=== PATIENT | female | born 1950 | race Caucasian/White ===

== ENCOUNTER → 2016-08-24 | Outpatient (CLI) | payer OTHER ==
[2016-08-24 13:14] LABS: BASO % 0.5 %; BASO ABS # 0.04 K/uL (0-0.2); COMPLETE YES; EOS % 0.8 %; HEMATOCRIT 43.4 % (37-47); IG% 0.5 %; LYMPH % 20.1 %; LYMPH ABS # 1.78 K/uL (1.2-3.4); MEAN CELL VOLUME 81.9 fL (80-100); MEAN CORPUSCULAR HEMOGLOBIN 28.9 pg (25-34); MEAN CORPUSCULAR HGB CONC 35.3 g/dl (32-36); MEAN PLATELET VOLUME 11.6 fL (7.4-10.4); NEUT % 70.1 %; PLATELET COUNT 194 K/uL (130-400); WHITE BLOOD COUNT 8.84 K/uL (4.8-10.8)
[2016-08-24 13:40] LABS: ALT/SGPT 63 U/L (12-78); BLOOD UREA NITROGEN 9 mg/dl (7-18); BUN/CREATININE RATIO 10.6 (10-20); CALCIUM 9.3 mg/dl (8.5-10.1); CARBON DIOXIDE 27 mmol/L (21-32); CHLORIDE 104 mmol/L (98-107); CREATININE 0.83 mg/dl (0.60-1.20); GLUCOSE 144 mg/dl (70-99); POTASSIUM 3.8 mmol/L (3.5-5.1); SODIUM 140 mmol/L (136-145)
[2016-08-24 13:43] LABS: ALB/GLOB RATIO 0.9 (0.9-2); ALKALINE PHOSPHATASE 97 U/L (45-117); AST/SGOT 34 U/L (15-37)
[2016-08-24 14:12] LABS: ESTIMATED AVERAGE GLUCOSE 169 mg/dl; HA1C FLAG Normal (Normal)
--- NOTE | 2016-09-28 08:08 | CODING QUERY MEDICAL NECESSITY ---
SUPPORTING DIAGNOSIS NEEDED Dr. Zamudio, A supporting diagnosis is required for the test/procedure performed on this patient in order for us to be reimbursed by the patient's insurance. Please provide a supporting diagnosis for the following test/procedure listed below next to the test name along with your signature. *If there is no additional diagnosis for this patient that would support the following test/procedure please document that below next to the test/procedure. Test(s)/Procedure(s) that require a supporting diagnosis: * ([id number]) B12 VITAMIN LEVEL DIAGNOSIS: DATE OF SERVICE: 08/24/16 Provider Signature: Date: Thank you Ernesto Ríos [facility] Once completed, please kindly fax back to [phone] For questions please call [phone]
== END | disposition home or self-care (01) ==
LOC: C.LABMFLN 08:48
PROVIDERS: ATTEND Family Medicine
DX: E11.9 Type 2 diabetes mellitus without complications (principal)

== ENCOUNTER → 2016-08-27 | Outpatient (CLI) | payer OTHER | END | disposition home or self-care (01) | LOC: C.LABMFLN 07:38 | PROVIDERS: ATTEND Family Medicine | DX: E11.9 Type 2 diabetes mellitus without complications (principal) ==

== ENCOUNTER → 2017-01-06 | Outpatient (CLI) | payer OTHER ==
[2017-01-07 07:28] LABS: ESTIMATED AVERAGE GLUCOSE 123 mg/dl; HA1C FLAG Normal (Normal)
== END | disposition home or self-care (01) ==
LOC: C.LABMFLN 13:59
PROVIDERS: ATTEND Family Medicine
DX: E55.9 Vitamin D deficiency, unspecified (principal); E11.9 Type 2 diabetes mellitus without complications

== ENCOUNTER → 2017-02-10 | Outpatient (CLI) | payer OTHER | END | disposition home or self-care (01) | LOC: C.LABMFLN 10:03 | PROVIDERS: ATTEND Family Medicine | DX: R35.0 Frequency of micturition (principal) ==

== ENCOUNTER → 2017-04-19 | Outpatient (CLI) | payer OTHER ==
[2017-04-19 13:24] LABS: ALT/SGPT 59 U/L (12-78); BLOOD UREA NITROGEN 10 mg/dl (7-18); BUN/CREATININE RATIO 10.3 (10-20); CALCIUM 8.9 mg/dl (8.5-10.1); CARBON DIOXIDE 27 mmol/L (21-32); CHLORIDE 105 mmol/L (98-107); CREATININE 0.95 mg/dl (0.60-1.20); GLUCOSE 156 mg/dl (70-99); POTASSIUM 3.9 mmol/L (3.5-5.1); SODIUM 139 mmol/L (136-145)
[2017-04-19 13:27] LABS: ALB/GLOB RATIO 0.8 (0.9-2); ALKALINE PHOSPHATASE 90 U/L (45-117); AST/SGOT 37 U/L (15-37)
[2017-04-19 13:57] LABS: ESTIMATED AVERAGE GLUCOSE 146 mg/dl; HA1C FLAG Normal (Normal)
== END | disposition home or self-care (01) ==
LOC: C.LABMFLN 10:08
PROVIDERS: ATTEND Family Medicine
DX: E11.9 Type 2 diabetes mellitus without complications (principal)

== ENCOUNTER 2022-05-19 11:35 | Inpatient (IN) ==
--- NOTE | 2022-05-19 11:41 | Emergency Department Note ---
Impression & Plan Seizure, S/P craniotomy, UTI (urinary tract infection), Unable to care for self ED Provider Note NAME: CAM CHISHOLM AGE: 71 SEX: F : 1950 ARRIVES VIA: Ambulance INFORMANT: Patient, ED PROVIDER(S): Wilian Sy MD Chief Complaint: Seizure-like episodes HPI: History may be limited given the patient's prior history of aphasia. The patient does appear to answer yes or no questions and currently denies any chest pain shortness of breath nausea vomiting or abdominal pain. Report from nursing via EMS was that the patient had (2) 20-second episodes where the patient had some clenched teeth and verbal outburst. Unsure as whether the patient take took her medications this morning. No reported falls or trauma. BSG was greater than 200. These episodes were witnessed by family that were not present at the bedside at the time of the patient's initial history and physical exam. I did review the patient's most recent primary care visit from April 22. The patient recently has suffered from a complicated UTI. Patient had been on Cipro 500 twice daily for 5 days. A urine specimen was obtained at that time. 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 The patient does have residual aphasia and right-sided weakness and has a history of focal epilepsy. 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 Patient does wear a hard helmet. Per review the patient's medication list she does take Lamictal but no other antiepileptic medications. I did review the patient's outpatient neurology note from [facility] who states the patient had been well controlled on Lamictal 100 mg twice daily the patient's Lamictal was increased to 300 mg Lamictal XR. I did speak with patient's daughter at bedside he stated that the patient's was recently admitted due to concern for intracranial bleeding from stage 4 melanoma mets. Patient is currently in hospital and he is the primary caregiver of the patient in the nighttime. She states that she lives several hours away and is unable to come up as frequently. She did notice the seizure- like episodes today. She states that nursing has not been in the home as frequently as they have been calling off around holiday and the patient has not been getting her medications as they are prescribed as she does need help with medication administration. MDM: Patient presented due to concern for 2 separate 22nd episodes that may have been related to seizure. Blood work is obtained along with an EKG chest x-ray patient was ordered IV fluids. CT of the head also obtained. The patient is already anticoagulated on apixaban due to prior history of DVT. EKG with no signs of obvious arrhythmia. The patient count showed normal white count H&H and platelet count with normal kidney function. BSG 170 not DKA. Urinalysis not show evidence of obvious infection. COVID-negative. CT head does not show any acute changes. The patient was ordered a dose of Rocephin as a precaution and urine culture was obtained as she is currently on Macrobid. I did speak with the admitting service Dr. Morel and the patient was admitted to the medicine service. ROS: See HPI for pertinent positives and negatives. A total of 10 systems were reviewed and otherwise negative. this may be limited given the patient's prior history of aphasia Past medical history: See below Surgical history: See below Social history: See below Physical Exam: GENERAL: NAD, wearing a mask, non-toxic. Wearing glasses. Head: Prior left-sided craniectomy noted. Well-healed incisional scars. EYE EXAM: Normal conjunctiva. PERRL, no anisocoria and EOM's grossly intact w/o pain. NECK: Supple, no nuchal rigidity, no adenopathy, non-tender. No signs of meningismus. FROM of the neck with good chin to chest and neck extension. No stridor. LUNGS: Clear to auscultation. Normal chest wall mechanics. HEART: NSR, no MRG. ABDOMEN: Abdomen soft, non-tender, normo-active bowel sounds, no masses, no rebound or guarding. BACK: No CVA TTP. SKIN: No rashes and no bruising. UPPER EXTREMITIES: Upper extremities are grossly normal. LOWER EXTREMITIES: Grossly normal, no edema. NEURO EXAM: Awake and alert, follows basic commands,expressive aphasia, right upper extremity weakness, able to move bilateral toes, left upper extremity with good manager operations and procurement strength Differential diagnoses: Epilepsy, infection, hypoglycemia, electrolyte abnormalities, cardiac sources, intracerebral event, trauma, toxicologic, neurologic, syncope, as well as other pathologies. Course: Patient was seen and evaluated the bedside. Full history physical exam was performed. EKG interpreted by me Normal sinus rhythm, rate of 83 normal intervals normal axis no ST elevations. Imaging Studies: See Below Cardiac monitoring: An order was placed for continuous cardiac monitoring. The monitor shows a rate of 82 with sinus rhythm. Past Med/Surg History Medical History Antibiotic-resistant bacterial infection Brain abscess 09/2020, [place] [facility] [place]plicated UTI (urinary tract infection) Depression Diabetes mellitus Diet controlled Diabetic peripheral neuropathy Epilepsy [place] [facility] History of COVID-19 05/2021 ([facility]) History of pulmonary embolism August 2021 History of TIA (transient ischemic attack) Hx of brain cancer 1999 Hyperlipidemia Incontinence of feces Incontinence of urine Pneumonia due to COVID-19 virus 05/2021 Pulmonary embolism dx 08/2021 (S), unknown etiology > on Eliquis Steatohepatitis, nonalcoholic Urinary incontinence Surgical History H/O bilateral breast reduction surgery H/O brain surgery 1999, 09/2020 History of ankle surgery History of cystoscopy Cystoscopy, Left Ureteronephroscopy, Left Retrograde Pyelogram, Laser Destruction and Basket Stone Extraction, ureteral stent (10/16/21): LMA igel#4 , atraumatic at [facility]. No issues per post-op anesthesia progress note. S/P colonoscopy S/P craniotomy in [place] for tumor removal and 09[place] removal of steel plate with debridement of abcess S/P hysterectomy S/P tonsillectomy Family History Father Diabetes Coronary heart disease Hyperlipemia Aunt Breast cancer Ovarian cancer Other Brain tumor Social History Smoking Status: Never smoker Second Hand Exposure: No; Hx Alcohol Use: No Hx Substance Use: No Preferred Language: Danish Communication Ability: Impaired Communication Tools: Facial Expression Visual Impairment: Limited Hearing Ability: Normal Driver Trainer Required: No Beliefs That Will Affect Care: None marital status: Current Living Situation: Spouse Current Living Situation Comment: Has around the clock caregivers current occupational status: disabled How many Children do You have: 2 Feels Safe at Home: Yes Childhood Exposure to Second-Hand Smoke: No Diet Comment: Regular diet caffeine: Yes (Coffee) during the past year weight has: increased > 10 lbs Dental Care, Regularly: No Physical Activity Frequency: Does not Exercise Seatbelt Use: always Sunscreen Use: Yes Do you think of yourself as: straight/heterosexual Assistive Devices: Denture - Upper, Mechanical Lift and Wheelchair Allergies Allergies Allergy/AdvReac Type Severity Reaction Status Date / Time oxycodone [From OxyContin] AdvReac Severe "deep Verified 05/19/22 15:26 sleep" Home Meds Home Medications Medication Instructions Recorded Confirmed aspirin 81 mg tablet,delayed 81 mg PO QAM #30 tabs 11/10/18 05/19/22 release polyethylene glycol 3350 8.5 gram 8.5 g PO DAILY PRN Constipation 01/08/20 05/19/22 oral powder packet acetaminophen 325 mg tablet 325 mg PO Q4H PRN Pain 10/28/20 05/19/22 docusate sodium 100 mg capsule 100 mg PO QAM PRN Constipation 10/28/20 05/19/22 (Colace) cholecalciferol (vitamin D3) 250 250 mcg PO QAM 06/30/21 05/19/22 mcg (10,000 unit) capsule mecobalamin (vitamin B12) 1,000 1,000 mcg PO QAM 06/30/21 05/19/22 mcg chewable tablet lamotrigine 300 mg tablet,extended 300 mg PO QAM 10/01/21 05/19/22 release 24 hr (Lamictal XR) sennosides 8.6 mg-docusate sodium 1 tab-cap PO DAILY 04/13/22 05/19/22 50 mg tablet (Senokot-S) ondansetron 4 mg disintegrating 4 mg PO DIRECTED PRN 05/19/22 05/19/22 tablet NAUSEA/VOMITING Previous Rx's Medication Instructions Recorded blood sugar diagnostic (Accu-Chek #50 ea 06/30/19 Judy Plus test strips) lancets (Accu-Chek Fastclix Lancet #50 ea 06/30/19 Drum) apixaban 2.5 mg tablet (Eliquis) 2.5 mg PO BID #60 tabs 03/29/22 Lift Chair #1 ea 04/13/22 Wheelchair (Manual) (Manual #1 ea 04/13/22 Wheelchair) triple strength cranberry plus Vit See Rx Instructions .Route 04/15/22 C .COMPLEX #30 Tabs nitrofurantoin 100 mg PO BID 7 days #14 caps 05/14/22 monohydrate/macrocrystals 100 mg capsule Results & Data (ED) Vital Signs Vital Signs - 24 hr 05/19/22 11:44 05/19/22 11:44 05/19/22 11:46 Temperature 37.0 C Temperature Source Oral Pulse Rate 84 87 Pulse Rate from SpO2 Sensor 86 Pulse Rhythm Regular Pulse Strength Normal Respiratory Rate 14 26 H Respiratory Effort / Characteristics Non-Labored Spontaneous Respiratory Depth Normal Respiratory Pattern Regular Blood Pressure 126/61 Blood Pressure Mean 82 Blood Pressure Position Lying Pulse Oximetry 96 97 Oxygen Delivery Method Room Air Room Air Sepsis Recent Fever Within 48 Hours No Sepsis New/Unexplained Change in Mental Status N/A Sepsis Action Taken by Nursing No Action Required 05/19/22 12:00 05/19/22 12:30 05/19/22 12:30 Temperature Temperature Source Pulse Rate 94 H 81 Pulse Rate from SpO2 Sensor 93 H 82 Pulse Rhythm Pulse Strength Respiratory Rate 23 14 Respiratory Effort / Characteristics Respiratory Depth Respiratory Pattern Blood Pressure 150/86 H Blood Pressure Mean 107 Blood Pressure Position Pulse Oximetry 95 99 Oxygen Delivery Method Sepsis Recent Fever Within 48 Hours Sepsis New/Unexplained Change in Mental Status Sepsis Action Taken by Nursing 05/19/22 13:00 05/19/22 13:30 05/19/22 14:00 Temperature Temperature Source Pulse Rate 77 74 70 Pulse Rate from SpO2 Sensor Pulse Rhythm Pulse Strength Respiratory Rate 19 19 Respiratory Effort / Characteristics Respiratory Depth Respiratory Pattern Blood Pressure Blood Pressure Mean Blood Pressure Position Pulse Oximetry Oxygen Delivery Method Sepsis Recent Fever Within 48 Hours Sepsis New/Unexplained Change in Mental Status Sepsis Action Taken by Alf Medications Current Medication List: was personally reviewed by me Laboratory Data Attestation: I reviewed the patient's lab results. Result diagrams: 05/19/22 12:01 05/19/22 12:01 Lab Results 05/19/22 05/19/22 05/19/22 Range/Units 12:00 12:01 12:01 WBC 6.35 (4.8-10.8) K/ul RBC 4.58 (3.93-5.22) M/uL Hgb 13.2 (12.0-16.0) g/dl Hct 39.5 (34.1-44.9) % MCV 86.2 (80.0-100.0) fL MCH 28.8 (25.0-34.0) pg MCHC 33.4 (32.0-36.0) g/dL RDW Std Deviation 46.5 H (36.4-46.3) fL RDW Coeff of Darlin 14.7 H (11.5-14.5) % Plt Count 208 (130-400) K/uL MPV 11.2 (9.4-12.3) fL Immature Gran % (Auto) 0.3 % Neut % (Auto) 67.1 % Lymph % (Auto) 20.0 % Esmeralda % (Auto) 9.6 % Eos % (Auto) 2.4 % Baso % (Auto) 0.6 % Neut # (Auto) 4.26 (1.4-6.5) K/uL Lymph # (Auto) 1.27 (1.2-3.4) K/uL Esmeralda # (Auto) 0.61 (0.24-0.82) K/uL Eos # (Auto) 0.15 (0-0.50) K/uL Baso # (Auto) 0.04 (0-0.2) K/uL Immature Gran # (Auto) 0.02 (0.00-0.02) K/uL Sodium 140 (136-145) mmol/L Potassium 4.2 (3.5-5.1) mmol/L Chloride 107 (98-107) mmol/L Carbon Dioxide 26 (21-32) mmol/L Anion Gap 7 (3-11) BUN 19 (6-23) mg/dl Creatinine 1.17 (0.6-1.2) mg/dl Est Cr Clr Drug Dosing 44.2 ml/min Est GFR ( Amer) 55.1 ml/min Est GFR (Non-Af Amer) 47.5 ml/min BUN/Creatinine Ratio 16.2 (10-20) Glucose 170 H (70-99(Fasting)) mg/dl Calcium 9.3 (8.5-10.1) mg/dl Phosphorus 3.0 (2.5-4.9) mg/dl Magnesium 2.0 (1.7-2.4) mg/dl Total Bilirubin 0.3 (0.2-1.0) mg/dl AST 24 (13-39) U/L ALT 28 (7-52) U/L Alkaline Phosphatase 83 (34-104) U/L Total Protein 7.3 (6.0-8.3) gm/dl Albumin 3.9 (3.4-5.0) gm/dl Globulin 3.4 (2.5-4.0) gm/dl Albumin/Globulin Ratio 1.1 (0.9-2) Urine Color Yellow Urine Appearance Clear (Clear) Urine pH 6.5 (4.5-7.5) Ur Specific [place] 1.014 (1.000-1.030) Urine Protein Negative (Negative) Urine Glucose (UA) Negative (Negative) Urine Ketones Negative (Negative) Urine Blood Negative (Negative) Urine Nitrite Negative (Negative) Urine Bilirubin Negative (Negative) Urine Urobilinogen Negative (Negative) Ur Leukocyte Esterase Trace H (Negative) Urine WBC (Auto) 1-5 (0-5) /hpf Urine RBC (Auto) 0-4 (0-4) /hpf U Hyaline Cast (Auto) 1-5 (0-5) /lpf U Epithel Cells (Auto) 5-10 H (0-5) /lpf Urine Bacteria (Auto) Negative (Negative) SARS-CoV-2, RNA, NAAT (NEGATIVE) 05/19/22 Range/Units 13:10 WBC (4.8-10.8) K/ul RBC (3.93-5.22) M/uL Hgb (12.0-16.0) g/dl Hct (34.1-44.9) % MCV (80.0-100.0) fL MCH (25.0-34.0) pg MCHC (32.0-36.0) g/dL RDW Std Deviation (36.4-46.3) fL RDW Coeff of Darlin (11.5-14.5) % Plt Count (130-400) K/uL MPV (9.4-12.3) fL Immature Gran % (Auto) % Neut % (Auto) % Lymph % (Auto) % Esmeralda % (Auto) % Eos % (Auto) % Baso % (Auto) % Neut # (Auto) (1.4-6.5) K/uL Lymph # (Auto) (1.2-3.4) K/uL Esmeralda # (Auto) (0.24-0.82) K/uL Eos # (Auto) (0-0.50) K/uL Baso # (Auto) (0-0.2) K/uL Immature Gran # (Auto) (0.00-0.02) K/uL Sodium (136-145) mmol/L Potassium (3.5-5.1) mmol/L Chloride (98-107) mmol/L Carbon Dioxide (21-32) mmol/L Anion Gap (3-11) BUN (6-23) mg/dl Creatinine (0.6-1.2) mg/dl Est Cr Clr Drug Dosing ml/min Est GFR ( Amer) ml/min Est GFR (Non-Af Amer) ml/min BUN/Creatinine Ratio (10-20) Glucose (70-99(Fasting)) mg/dl Calcium (8.5-10.1) mg/dl Phosphorus (2.5-4.9) mg/dl Magnesium (1.7-2.4) mg/dl Total Bilirubin (0.2-1.0) mg/dl AST (13-39) U/L ALT (7-52) U/L Alkaline Phosphatase (34-104) U/L Total Protein (6.0-8.3) gm/dl Albumin (3.4-5.0) gm/dl Globulin (2.5-4.0) gm/dl Albumin/Globulin Ratio (0.9-2) Urine Color Urine Appearance (Clear) Urine pH (4.5-7.5) Ur Specific [place] (1.000-1.030) Urine Protein (Negative) Urine Glucose (UA) (Negative) Urine Ketones (Negative) Urine Blood (Negative) Urine Nitrite (Negative) Urine Bilirubin (Negative) Urine Urobilinogen (Negative) Ur Leukocyte Esterase (Negative) Urine WBC (Auto) (0-5) /hpf Urine RBC (Auto) (0-4) /hpf U Hyaline Cast (Auto) (0-5) /lpf U Epithel Cells (Auto) (0-5) /lpf Urine Bacteria (Auto) (Negative) SARS-CoV-2, RNA, NAAT NEGATIVE (NEGATIVE) Administered Medications Discontinued Medications Sodium Chloride (Nss) 500 mls @ 999 mls/hr IV .Q31M TYRELL Stop: 05/19/22 12:30 Last Infusion: 05/19/22 14:16 Dose: 0 mls/hr Documented By: Admin: 05/19/22 13:00 Dose: 999 mls/hr Documented By: AM Ceftriaxone Sodium (Rocephin) 2,000 mg in 70 mls @ 140 mls/hr IV NOW STA Stop: 05/19/22 14:40 Last Infusion: 05/19/22 15:51 Dose: 0 mls/hr Documented By: Admin: 05/19/22 14:44 Dose: 140 mls/hr Documented By: AM Olanzapine (Olanzapine 10 Mg/2.1 Ml Sdv) 2.5 mg IM NOW STA Stop: 05/19/22 16:59 Last Admin: 05/19/22 17:07 Dose: 2.5 mg Documented By: AM Olanzapine (Olanzapine 10 Mg/2.1 Ml Sdv) Confirm Administered Dose 10 mg IM .STBeiZ-MED ONE Stop: 05/19/22 17:01 Last Admin: 05/19/22 17:35 Dose: Not Given Documented By: AM Imaging Data Radiologist's Impression: Head CT 05/19/22 11:49 CT SCAN OF THE BRAIN WITHOUT IV CONTRAST CLINICAL HISTORY: Seizure. History of brain tumor. COMPARISON STUDY: CT of the brain dated 08/24/2019. TECHNIQUE: Unenhanced axial CT scan of the brain is performed from the vertex to the skull base. A dose lowering technique was utilized adhering to the principles of ALARA. CT DOSE: 614.27 mGy.cm FINDINGS: Brain parenchyma: There is age-related involutional change. Advanced confluent white matter abnormality there is again noted. Left frontal encephalomalacia is similar to previous and consistent with prior mass resection. There is no hemorrhage, mass effect, or evidence of acute territorial ischemia by CT criteria. Arriaga-white matter differentiation is preserved. No extra-axial fluid collection is seen. Ventricles, sulci, cisterns: Prominent secondary to involutional change. Intracranial vasculature: There is mild atherosclerotic calcification of the cavernous carotid arteries. Calvarium: The skeletal structures are osteopenic. Left frontoparietal craniectomy change is new from previous. No destructive calvarial lesion is identified. Sinuses and mastoids: The visualized paranasal sinuses are clear. The mastoid air cells are well pneumatized. Orbits: The bony orbits are grossly intact. IMPRESSION: 1. There is no hemorrhage, mass effect, or evidence of acute territorial ischemia by CT criteria. 2. Chronic and postsurgical findings as above. ACT 112: Negative or not required by law. Electronically signed by: Janusz Fields M.D. 05/19/2022 12:56 PM Discharge Plan Visit Data Chief Complaint: Seizure ED Provider: Wilian Sy Discharge Problem: Seizure, S/P craniotomy, UTI (urinary tract infection), Unable to care for self Patient Disposition: Admitted As Inpatient Discharge Instructions Interventions: ED Discharge Assessment Last Done: 05/19/22 17:25
[2022-05-19] MEDS ORDERED: SODIUM CHLORIDE 0.9% 500 ML IV SCH (12:00)
[2022-05-19 12:16] LABS: Appearance Urine Clear (Clear); Bacteria Urine Automated Negative (Negative); Bilirubin Urine Negative (Negative); Blood Urine Negative (Negative); Color Urine Yellow; Glucose Urine UA Negative (Negative); Ketones Urine Negative (Negative); Leukocyte Esterase Urine Trace (Negative); Nitrite Urine Negative (Negative); Protein Urine Negative (Negative); RBC Urine Automated 0-4 /hpf (0-4); Specific Gravity Urine 1.014 (1.000-1.030); Urobilinogen Urine Negative (Negative); pH Urine 6.5 (4.5-7.5)
[2022-05-19 12:21] LABS: Basophils # (auto) 0.04 K/uL (0-0.2); Basophils % (auto) 0.6 %; Eosinophils # (auto) 0.15 K/uL (0-0.50); Eosinophils % (auto) 2.4 %; Hematocrit (blood only) 39.5 % (34.1-44.9); Hemoglobin 13.2 g/dl (12.0-16.0); Immature Granulocytes # (auto) 0.02 K/uL (0.00-0.02); Immature Granulocytes % (auto) 0.3 %; Lymphocytes # (auto) 1.27 K/uL (1.2-3.4); Mean Corpuscular Hemoglobin 28.8 pg (25.0-34.0); Mean Corpuscular Hgb Conc 33.4 g/dL (32.0-36.0); Mean Corpuscular Volume 86.2 fL (80.0-100.0); Mean Platelet Volume 11.2 fL (9.4-12.3); Monocytes # (auto) 0.61 K/uL (0.24-0.82); Monocytes % (auto) 9.6 %; Neutrophils # (auto) 4.26 K/uL (1.4-6.5); Neutrophils % (auto) 67.1 %; Platelet Count 208 K/uL (130-400); RDW Coefficient of Variation 14.7 % (11.5-14.5); RDW Standard Deviation 46.5 fL (36.4-46.3); Red Blood Count 4.58 M/uL (3.93-5.22); White Blood Count 6.35 K/ul (4.8-10.8)
[2022-05-19 12:42] LABS: Albumin Globulin Ratio 1.1 (0.9-2); Albumin Level 3.9 gm/dl (3.4-5.0); BUN Creatinine Ratio 16.2 (10-20); Bilirubin,Total 0.3 mg/dl (0.2-1.0); Calcium 9.3 mg/dl (8.5-10.1); Creatinine Clr Calc Pharmacy 44.2 ml/min; Est GFR (African American) 55.1 ml/min; Est GFR (Non-African American) 47.5 ml/min; Globulin 3.4 gm/dl (2.5-4.0); Potassium 4.2 mmol/L (3.5-5.1); Total Protein 7.3 gm/dl (6.0-8.3)
--- NOTE | 2022-05-19 12:58 | CT Scan Report ---
CT SCAN OF THE BRAIN WITHOUT IV CONTRAST CLINICAL HISTORY: Seizure. History of brain tumor. COMPARISON STUDY: CT of the brain dated 08/24/2019. TECHNIQUE: Unenhanced axial CT scan of the brain is performed from the vertex to the skull base. A do se lowering technique was utilized adhering to the principles of ALARA. CT DOSE: 614.27 mGy.cm FINDINGS: Brain parenchyma: There is age-related involutional change. Advanced confluent white matter abnormali ty there is again noted. Left frontal encephalomalacia is similar to previous and consistent with blanquita or mass resection. There is no hemorrhage, mass effect, or evidence of acute territorial ischemia by CT criteria. Arriaga-white matter differentiation is preserved. No extra-axial fluid collection is seen. Ventricles, sulci, cisterns: Prominent secondary to involutional change. Intracranial vasculature: There is mild atherosclerotic calcification of the cavernous carotid arteri es. Calvarium: The skeletal structures are osteopenic. Left frontoparietal craniectomy change is new from previous. No destructive calvarial lesion is identified. Sinuses and mastoids: The visualized paranasal sinuses are clear. The mastoid air cells are well pneu matized. Orbits: The bony orbits are grossly intact. IMPRESSION: 1. There is no hemorrhage, mass effect, or evidence of acute territorial ischemia by CT criteria. 2. Chronic and postsurgical findings as above. ACT 112: Negative or not required by law. Electronically signed by: Janusz Fields M.D. 05/19/2022 12:56 PM
--- NOTE | 2022-05-19 13:27 | History & Physical Report ---
Date of Service May 19, 2022 Assessment & Plan (1) Confusion: Plan: Lisa 71-year-old female who presents with an episode of confusion following an episode of rigidity and 20 seconds of vocal tic concerning for seizure. Her who is her primary caregiver recently admitted with metastatic melanoma with brain cancer and intracranial bleed. Had previously had nursing care around 7-7 during the day, but has a difficulty with staffing and intermittent t o no care in the last week. Family is visiting from out of town, patient has missed several days of antiseizure medications. Altered mental status, possible partial seizure episode 2 episodes of staring and vocal tic lasting 20 seconds In the setting of patient missing antiseizure medications without routine care and her primary caregiver being hospitalized Ativan on-call Continue home seizure medicines, suspect that this is no treatment failure but rather due to missing her medications Patient is appropriate at bedside exam, speech is extremely limited at baseline Seizure precautions Continue lamotrigine XR 300 mg daily CThead without acute findings, no evidence of bleed. Defer MRI at this time History of anaplastic oligo astrocytoma S/p resection in 1999, subsequent partial craniectomy due to left-sided cranial osteomyelitis Surgical site well-healed, no overlying crepitus/warmth/erythema Continue antiseizure medications as above History of PE Continue apixaban 2.5 mg p.o. daily No hypoxia, no tachycardia on admission No evidence of bleeding History of recurrent complicated UTIs Has been treated with Macrobid recently, UA with leukocyte esterase but otherwise uninfected appearing. UC pending. Given complexity, recurrent UTIs, and reports of foul-smelling urine recently 1 dose of Rocephin given pending culture results No leukocytosis Type 2 diabetes mellitus Diet controlled at home Admitting glucose 170 We will add gentle SSI, glucose checks AC/at bedtime Placement Due to her primary caregiver being hospitalized and in serious condition patient does not have adequate care at home, and has missed multiple doses of her antiseizure medications. She is not able to perform her IADLs/ADLs. Case management consulted. Anticipate placement DVT prophylaxis: Anticoagulated Diet: Diabetic diet CODE STATUS: DNR/DNI, discussed with family Disposition: Medical telemetry for seizure monitoring (2) Anaplastic oligoastrocytoma: (3) History of TIA (transient ischemic attack): (4) Diabetic peripheral neuropathy: (5) Diabetes mellitus: (6) Epilepsy: History of Present Illness Primary Care Provider: Stephanie Zamudio MD Lisa is a 71-year-old female with a past medical history of epilepsy, diabetes mellitus, depression, brain abscess, craniotomy, anaplastic oligo astrocytoma, pulmonary embolism, complicated UTI with multidrug resistance who presented to the ER for assessment of seizure-like episodes. History limited due to aphasia. Family visiting locally from 2-3 hours away to help care. Has 7-7 care, but missing doses and nursing help limited. Primary caregiver currently admitted for stage 4 melanoma. Per EMS report patient had 2 observed 20 sec episodes of clenched teeth and nonsensical verbal outburst. Episodes were witnessed by family. Recently treated for complicated UTI ciprofloxacin 04/22/2022. 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 Missed at least two doses On ER review: No leukocytosis. Hemoglobin 13.2. Sodium normal. Potassium normal. Creatinine with normal baseline, admitting creatinine 1.17. No lactate available. UA is not infected appearing. CT of the head shows no acute findings, chronic and postsurgical findings consistent with prior resection and craniectomy. ___ Per Bedside primary caregiver last 2 years. Nursing 100hrs week, watches overnight. Staffing lately much worse, coverage only about half the week. had mets cancer with brain bleed and no care at night. Has missed at least two doses of antiseizure medications. Switched agencies, last week nurse thought Pat may have had a seizure like episode. normally seizures in the past have been with seizures. Episode this time was with stiffness and repetitive vocal tick lasting 20 seconds with some fatigue afterwards. Was staring into space, but no compelte LoC, fall, or shaking. Was recently discharged from [facility] with a complicated UTI in march. has constant recurrent UTIs. Since returning home had an outpatient UA and had trace bacteria but was not treated and thought was resolving. Foul smelling urine since ~05/12. Increased agitation last 2 days with sedation inbetween. Took macrobid for last 2-3 days but may have missed doses, daughter is not sure. No care right now with her . No fevers, chills, cough. Does generally not get fevers even with bad UTIs. No LoC. Had not indicated chest pain, chest pressure. Mostly yes/no answers, some sporadic words/short sentences. +suspicion for sundowning but had not had follow up for this with psych. endorses hx of dementia, multifactorial with hx of brain ca resection. No tobacco or alcohol use. Wiggles toes, R senior sales engineer and L senior sales engineer intact. Allergies Allergy/AdvReac Type Severity Reaction Status Date / Time oxycodone [From OxyContin] AdvReac Severe "deep Verified 03/27/22 09:55 sleep" Home Medications Medication Instructions Recorded Confirmed Type aspirin 81 mg tablet,delayed 81 mg PO QAM #30 tabs 11/10/18 04/13/22 History release blood sugar diagnostic (Accu-Chek #50 ea 06/30/19 03/27/22 Rx Judy Plus test strips) lancets (Accu-Chek Fastclix Lancet #50 ea 06/30/19 03/27/22 Rx Drum) polyethylene glycol 3350 8.5 gram 8.5 g PO DAILY PRN Constipation 01/08/20 04/13/22 History oral powder packet acetaminophen 325 mg tablet 325 mg PO .q4 hours PRN Pain 10/28/20 04/13/22 History docusate sodium 100 mg capsule 100 mg PO QAM PRN Constipation 10/28/20 04/13/22 History (Colace) cholecalciferol (vitamin D3) 250 250 mcg PO QAM 06/30/21 04/13/22 History mcg (10,000 unit) capsule mecobalamin (vitamin B12) 1,000 1,000 mcg PO QAM 06/30/21 04/13/22 History mcg chewable tablet lamotrigine 300 mg tablet,extended 300 mg PO QAM 10/01/21 04/13/22 History release 24 hr (Lamictal XR) ondansetron 4 mg disintegrating 4 mg PO .prn #3 tabs 11/06/21 04/13/22 Rx tablet apixaban 2.5 mg tablet (Eliquis) 2.5 mg PO BID #60 tabs 03/29/22 04/13/22 Rx Lift Chair #1 ea 04/13/22 Rx Wheelchair (Manual) (Manual #1 ea 04/13/22 Rx Wheelchair) sennosides 8.6 mg-docusate sodium 1 tab-cap PO DAILY 04/13/22 04/13/22 History 50 mg tablet (Senokot-S) triple strength cranberry plus Vit See Rx Instructions .Route 04/15/22 Rx C .COMPLEX #30 Tabs nitrofurantoin 100 mg PO BID 7 days #14 caps 05/14/22 Rx monohydrate/macrocrystals 100 mg capsule Past Med/Surg History Medical History Antibiotic-resistant bacterial infection Brain abscess 09/2020, follows with [facility] Complicated UTI (urinary tract infection) Depression Diabetes mellitus Diet controlled Diabetic peripheral neuropathy Epilepsy Follows with Neurology [facility]. History of COVID-19 05/2021 ([facility] [place]) History of pulmonary embolism August 2021 History of TIA (transient ischemic attack) Hx of brain cancer 1999 Hyperlipidemia Incontinence of feces Incontinence of urine Pneumonia due to COVID-19 virus 05/2021 Pulmonary embolism dx 08/2021 ([facility] unknown etiology > on Eliquis Steatohepatitis, nonalcoholic Urinary incontinence Surgical History H/O bilateral breast reduction surgery H/O brain surgery 1999, 09/2020 History of ankle surgery History of cystoscopy Cystoscopy, Left Ureteronephroscopy, Left Retrograde Pyelogram, Laser Destruction and Basket Stone Extraction, ureteral stent (10/16/21): LMA igel#4, atraumatic at [facility]. No issues per post-op anesthesia progress note. S/P colonoscopy S/P craniotomy in 1999 ([facility]) for tumor removal and 09/2020 ([facility]) removal of steel plate with debridement of abcess S/P hysterectomy S/P tonsillectomy Family History Father Diabetes Coronary heart disease Hyperlipemia Aunt Breast cancer Ovarian cancer Other Brain tumor Social History Smoking Status: Never smoker Second Hand Exposure: No; Hx Alcohol Use: No Hx Substance Use: No Preferred Language: Burkinan Communication Ability: Impaired Communication Tools: Facial Expression Visual Impairment: Limited Hearing Ability: Normal Teletypesetter Operator Required: No Beliefs That Will Affect Care: None marital status: Current Living Situation: Spouse Current Living Situation Comment: Has around the clock caregivers current occupational status: disabled How many Children do You have: 2 Feels Safe at Home: Yes Childhood Exposure to Second-Hand Smoke: No Diet Comment: Regular diet caffeine: Yes (Coffee) during the past year weight has: increased > 10 lbs Dental Care, Regularly: No Physical Activity Frequency: Does not Exercise Seatbelt Use: always Sunscreen Use: Yes Do you think of yourself as: straight/heterosexual Assistive Devices: Denture - Upper, Mechanical Lift and Wheelchair Review of Systems Review of Systems: Unobtainable due to cognitive status Physical Exam Physical Exam: General: Orientation limited by cognitive status. No acute distress. Left-sided partial craniectomy. HEENT: Pupils equal and reactive to light. Vision grossly intact, hearing grossly intact Pulm: CTAB A&P. -wheezes, -rales, -rhonchi. Symmetrical chest rise. No increased work of breathing. No respiratory distress. Cardiac: RRR, -mrg. Radial pulses intact and symmetrical. Abdominal: Nontender, nondistended, soft. BS present. Extremities: Right senior sales engineer strength 4+/5, left senior sales engineer strength 5/5, wiggle toes bilaterally. Nods head that she can feel sensation to soft touch in hands and feet. Neurologic exam is limited by cognitive status. No tongue lesions. Results & Data Results & Data ([facility]) Vital Signs (Past 12 Hours) Vital Signs Temp Pulse Resp BP Pulse Ox O2 Del Method 05/19/22 11:44 Room Air 05/19/22 11:44 37.0 C 84 14 126/61 96 Room Air PG Care Time/CCT Total # of Minutes Spent Total Time Spent with Patient: Total time spent is greater than 50% in coordination of care (as documented) at patient's floor/unit and/or counseling patient: Coding Level of Care Code 22935 Initial Inpt Care Lvl 2 Diagnoses Confusion R41.0 Anaplastic oligoastrocytoma C71.9 History of TIA (transient ischemic attack) Z86.73 Diabetic peripheral neuropathy E11.42 Diabetes mellitus E11.9 Epilepsy G40.909
[2022-05-19] MEDS ORDERED: cefTRIAXone SODIUM 2,000 MG/70 ML BAG IV STA (14:11)
[2022-05-19] MEDS ORDERED: OLANZapine 10 MG/2.1 ML SDV IM STA (16:58)
[2022-05-19] MEDS ORDERED: OLANZapine 10 MG/2.1 ML SDV IM ONE (17:00)
--- NOTE | 2022-05-19 17:13 | Electrocardiogram Report ---
Test Reason : Blood Pressure : / mmHG Vent. Rate : 083 BPM Atrial Rate : 083 BPM P-R Int : 140 ms QRS Dur : 074 ms QT Int : 382 ms P-R-T Axes : 032 -05 017 degrees QTc Int : 448 ms Normal sinus rhythm Nonspecific ST abnormality Confirmed by Hussein Last ([id number]) on 05/19/2022 5:13:21 PM Referred By: Confirmed By:Marcelo Last
[2022-05-19] MEDS ORDERED: LORazepam 2 MG/1 ML VIAL IV PRN (17:24)
[2022-05-19] MEDS ORDERED: MELATONIN 3 MG TAB PO PRN (17:24)
[2022-05-19] MEDS ORDERED: ACETAMINOPHEN 325 MG TAB PO PRN (17:24)
[2022-05-19] MEDS: OLANZapine 10 MG/2.1 ML SDV IM SCH (20:57)
[2022-05-19] MEDS: APIXABAN 2.5 MG TAB PO SCH (20:58)
[2022-05-19] MEDS: lamoTRIgine 100 MG TAB PO SCH (20:59)
[2022-05-20 07:34] LABS: Basophils # (auto) 0.03 K/uL (0-0.2); Basophils % (auto) 0.5 %; Eosinophils # (auto) 0.27 K/uL (0-0.50); Eosinophils % (auto) 4.6 %; Immature Granulocytes # (auto) 0.02 K/uL (0.00-0.02); Immature Granulocytes % (auto) 0.3 %; Lymphocytes # (auto) 1.01 K/uL (1.2-3.4); Lymphocytes % (auto) 17.2 %; Mean Corpuscular Hemoglobin 29.2 pg (25.0-34.0); Mean Corpuscular Hgb Conc 34.1 g/dL (32.0-36.0); Mean Corpuscular Volume 85.4 fL (80.0-100.0); Mean Platelet Volume 11.1 fL (9.4-12.3); Monocytes # (auto) 0.61 K/uL (0.24-0.82); Monocytes % (auto) 10.4 %; Neutrophils # (auto) 3.94 K/uL (1.4-6.5); Platelet Count 197 K/uL (130-400); RDW Coefficient of Variation 14.6 % (11.5-14.5); White Blood Count 5.88 K/ul (4.8-10.8)
[2022-05-20 08:09] LABS: BUN Creatinine Ratio 14.6 (10-20); Creatinine Clr Calc Pharmacy 50.3 ml/min; Est GFR (African American) 64.2 ml/min; Est GFR (Non-African American) 55.4 ml/min; Potassium 4.2 mmol/L (3.5-5.1)
[2022-05-20] MEDS: ASPIRIN 81 MG ECTAB PO SCH (08:25)
[2022-05-20] MEDS: APIXABAN 2.5 MG TAB PO SCH ×2 (08:25→20:09)
[2022-05-20] MEDS: lamoTRIgine 100 MG TAB PO SCH ×2 (14:26→20:09)
--- NOTE | 2022-05-20 19:03 | Hospitalist Progress Note ---
Date of Service May 20, 2022 Assessment & Plan (1) Confusion: Plan: Lisa 71-year-old female with a PMHx of epilepsy, astrocytoma and craniotomy due to a brain abscess who presents with an episode of confusion following an period of rigidity and 20 seconds of vocal tic concerning for seizure. 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 Defer MRI at this time History of anaplastic oligo astrocytoma S/p resection in 1999, subsequent partial craniectomy due to left-sided cranial osteomyelitis Surgical site well-healed, no overlying crepitus/warmth/erythema Continue antiseizure medications as above History of PE Continue apixaban 2.5 mg p.o. daily No hypoxia, no tachycardia on admission No evidence of bleeding History of recurrent complicated UTIs Has been treated with Macrobid recently, UA with leukocyte esterase but otherwise uninfected appearing. - Urine culture with pin point growth only - recommend against further antibiotics Type 2 diabetes mellitus Diet controlled at home Admitting glucose 170 We will add gentle SSI, glucose checks AC/at bedtime Placement Due to her primary caregiver being hospitalized and in serious condition patient does not have adequate care at home, and has missed multiple doses of her antiseizure medications. She is not able to perform her IADLs/ADLs. Case management consulted. Anticipate placement DVT prophylaxis: Anticoagulated Diet: Diabetic diet CODE STATUS: DNR/DNI, discussed with family Disposition: Medical telemetry for seizure monitoring (2) Anaplastic oligoastrocytoma: (3) History of TIA (transient ischemic attack): (4) Diabetic peripheral neuropathy: (5) Diabetes mellitus: (6) Epilepsy: Admission and Anticipated Discharge Date Admission Date: May 19, 2022 Subjective No acute events Review of Systems Review of Systems: All systems reviewed & are unremarkable except as noted in HPI & below Physical Exam Constitutional: WD/WN, vitals as above Eyes: + anicteric sclerae ENMT: external ear and nose normal, oropharynx normal Neck: trachea midline, no thyromegaly Respiratory: normal respiratory effort, lungs clear to auscultation Cardiovascular: RRR, no murmur, no edema Musculoskeletal: Head/Neck/Chest: + head abnormal to inspection Skin: no rashes, warm and dry Neurologic: moves all extremities Speech / Cognition: + expressive aphasia Results & Data Results & Data ([facility]) Vital Signs (Past 12 Hours) Vital Signs Pulse Pulse Resp BP BP Pulse Ox O2 Del Method 05/20/22 16:00 88 15 97 05/20/22 16:00 132/83 05/20/22 14:01 78 20 97 05/20/22 14:01 150/81 H 05/20/22 14:00 82 14 99 05/20/22 12:00 74 17 96 05/20/22 12:00 116/76 05/20/22 10:01 126/66 05/20/22 10:01 81 16 99 05/20/22 10:00 80 18 81 L 05/20/22 08:00 76 23 98 05/20/22 08:00 144/79 H 05/20/22 07:59 121/95 05/20/22 07:59 73 20 98 05/20/22 08:01 85 14 125/81 98 Room Air 05/20/22 07:14 81 18 139/86 96 Room Air PG Care Time/CCT Total # of Minutes Spent Total Time Spent with Patient: Total time spent is greater than 50% in coordination of care (as documented) at patient's floor/unit and/or counseling patient: Coding Level of Care Code 03564 Subseq Hosp Care Lvl 2 Diagnoses Confusion R41.0 Anaplastic oligoastrocytoma C71.9 History of TIA (transient ischemic attack) Z86.73 Diabetic peripheral neuropathy E11.42 Diabetes mellitus E11.9 Epilepsy G40.909
[2022-05-20] MEDS: OLANZapine 10 MG/2.1 ML SDV IM SCH (20:09)
[2022-05-21] MEDS: lamoTRIgine 100 MG TAB PO SCH ×3 (09:25→20:04)
[2022-05-21] MEDS: ASPIRIN 81 MG ECTAB PO SCH (09:26)
[2022-05-21] MEDS: APIXABAN 2.5 MG TAB PO SCH ×2 (09:26→20:05)
--- NOTE | 2022-05-21 19:00 | Hospitalist Progress Note ---
Date of Service May 21, 2022 Assessment & Plan (1) Confusion: Plan: Lisa 71-year-old female with a PMHx of epilepsy, astrocytoma and craniotomy due to a brain abscess who presents with an episode of confusion following an period of rigidity and 20 seconds of vocal tic concerning for seizure. 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 Defer MRI at this time History of anaplastic oligo astrocytoma S/p resection in 1999, subsequent partial craniectomy due to left-sided cranial osteomyelitis Surgical site well-healed, no overlying crepitus/warmth/erythema Continue antiseizure medications as above History of PE Continue apixaban 2.5 mg p.o. daily No hypoxia, no tachycardia on admission No evidence of bleeding History of recurrent complicated UTIs Has been treated with Macrobid recently, UA with leukocyte esterase but otherwise uninfected appearing. - Urine culture with pin point growth only - recommend against further antibiotics Type 2 diabetes mellitus Diet controlled at home Admitting glucose 170 We will add gentle SSI, glucose checks AC/at bedtime Placement Due to her primary caregiver being hospitalized and in serious condition patient does not have adequate care at home, and has missed multiple doses of her antiseizure medications. She is not able to perform her IADLs/ADLs. Case management consulted - working on placement for both her and her DVT prophylaxis: Anticoagulated Diet: Diabetic diet CODE STATUS: DNR/DNI, discussed with family Disposition: Medical telemetry for seizure monitoring (2) Anaplastic oligoastrocytoma: (3) History of TIA (transient ischemic attack): (4) Diabetic peripheral neuropathy: (5) Diabetes mellitus: (6) Epilepsy: Admission and Anticipated Discharge Date Admission Date: May 19, 2022 Subjective No acute events overnight. Patient is drowsy today Review of Systems Review of Systems: All systems reviewed & are unremarkable except as noted in HPI & below Physical Exam Constitutional: WD/WN, vitals as above Eyes: + anicteric sclerae ENMT: external ear and nose normal, oropharynx normal Neck: trachea midline, no thyromegaly Respiratory: normal respiratory effort, lungs clear to auscultation Cardiovascular: RRR, no murmur, no edema Musculoskeletal: Head/Neck/Chest: + head abnormal to inspection Skin: no rashes, warm and dry Neurologic: moves all extremities Speech / Cognition: + expressive aphasia Results & Data Results & Data ([facility]) Vital Signs (Past 12 Hours) Vital Signs Temp Pulse Pulse Resp BP BP Pulse Ox 05/21/22 14:00 36.5 C 76 18 116/72 100 05/21/22 14:48 87 05/21/22 12:08 36.5 C 93 H 18 119/78 98 05/21/22 09:24 91 H 05/21/22 07:15 36.4 C L 87 16 105/68 92 05/21/22 07:17 100 H O2 Del Method 05/21/22 14:00 Room Air 05/21/22 14:48 05/21/22 12:08 Room Air 05/21/22 09:24 05/21/22 07:15 Room Air 05/21/22 07:17 PG Care Time/CCT Total # of Minutes Spent Total Time Spent with Patient: Total time spent is greater than 50% in coordination of care (as documented) at patient's floor/unit and/or counseling patient: Coding Level of Care Code 38191 Subseq Hosp Care Lvl 1 Diagnoses Confusion R41.0 Anaplastic oligoastrocytoma C71.9 History of TIA (transient ischemic attack) Z86.73 Diabetic peripheral neuropathy E11.42 Diabetes mellitus E11.9 Epilepsy G40.909
[2022-05-21] MEDS: OLANZapine 10 MG/2.1 ML SDV IM SCH (20:01)
[2022-05-22] MEDS: APIXABAN 2.5 MG TAB PO SCH ×2 (08:44→21:46)
[2022-05-22] MEDS: lamoTRIgine 100 MG TAB PO SCH ×3 (08:44→21:46)
[2022-05-22] MEDS: ASPIRIN 81 MG ECTAB PO SCH (08:45)
--- NOTE | 2022-05-22 10:53 | Hospitalist Progress Note ---
Date of Service May 22, 2022 Assessment & Plan (1) Confusion: Plan: Lisa 71-year-old female with a PMHx of epilepsy, astrocytoma and craniotomy due to a brain abscess who presents with an episode of confusion following an period of rigidity and 20 seconds of vocal tic concerning for seizure. 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 Defer MRI at this time History of anaplastic oligo astrocytoma S/p resection in 1999, subsequent partial craniectomy due to left-sided cranial osteomyelitis Surgical site well-healed, no overlying crepitus/warmth/erythema Continue antiseizure medications as above History of PE Continue apixaban 2.5 mg p.o. daily No hypoxia, no tachycardia on admission No evidence of bleeding History of recurrent complicated UTIs Has been treated with Macrobid recently, UA with leukocyte esterase but otherwise uninfected appearing. - Urine culture with pin point growth only - recommend against further antibiotics Type 2 diabetes mellitus Diet controlled at home Admitting glucose 170 We will add gentle SSI, glucose checks AC/at bedtime Placement Due to her primary caregiver being hospitalized and in serious condition patient does not have adequate care at home, and has missed multiple doses of her antiseizure medications. She is not able to perform her IADLs/ADLs. Case management consulted - working on placement for both her and her DVT prophylaxis: Anticoagulated Diet: Diabetic diet CODE STATUS: DNR/DNI, discussed with family Disposition: Medical/Surg. Discussed with Dr. Bowden, hospitalist for her who is currently admitted: it is okay for her to be placed in same hospital room as him (even though she is VRE +) (2) Anaplastic oligoastrocytoma: (3) History of TIA (transient ischemic attack): (4) Diabetic peripheral neuropathy: (5) Diabetes mellitus: (6) Epilepsy: Admission and Anticipated Discharge Date Admission Date: May 19, 2022 Subjective No acute events overnight. Patient is slightly more awake and conversant today, although no meaningful conversation due to cognitive impairment. Able to get moved to same room as who is currently admitted. Both are awaiting placement. Review of Systems Review of Systems: Unobtainable due to cognitive status Physical Exam Constitutional: WD/WN, vitals as above Eyes: + anicteric sclerae ENMT: external ear and nose normal, oropharynx normal Neck: trachea midline, no thyromegaly Respiratory: normal respiratory effort, lungs clear to auscultation Cardiovascular: RRR, no murmur, no edema Gastrointestinal (Abdomen): normal bowel sounds, soft, nontender, no hepatosplenomegaly Musculoskeletal: Head/Neck/Chest: + head abnormal to inspection Skin: no rashes, warm and dry Neurologic: moves all extremities Results & Data Results & Data ([facility]) Vital Signs (Past 12 Hours) Vital Signs Temp Pulse Pulse Resp BP Pulse Ox O2 Del Method 05/22/22 07:35 86 05/22/22 07:55 36.9 C 87 18 109/76 99 Room Air 05/22/22 04:52 36.4 C L 83 16 130/82 98 Room Air PG Care Time/CCT Total # of Minutes Spent Total Time Spent with Patient: Total time spent is greater than 50% in coordination of care (as documented) at patient's floor/unit and/or counseling patient: Coding Level of Care Code 39707 Subseq Hosp Care Lvl 1 Diagnoses Confusion R41.0 Anaplastic oligoastrocytoma C71.9 History of TIA (transient ischemic attack) Z86.73 Diabetic peripheral neuropathy E11.42 Diabetes mellitus E11.9 Epilepsy G40.909
[2022-05-22] MEDS: OLANZapine 10 MG/2.1 ML SDV IM SCH (21:45)
[2022-05-23] MEDS: ASPIRIN 81 MG ECTAB PO SCH (09:09)
[2022-05-23] MEDS: lamoTRIgine 100 MG TAB PO SCH ×3 (09:09→21:29)
[2022-05-23] MEDS: APIXABAN 2.5 MG TAB PO SCH ×2 (09:09→21:29)
--- NOTE | 2022-05-23 10:06 | Hospitalist Progress Note ---
Date of Service May 23, 2022 Assessment & Plan (1) Confusion: Plan: Lisa 71-year-old female who presents with an episode of confusion following an episode of rigidity and 20 seconds of vocal tic concerning for seizure. Her who is her primary caregiver was recently admitted with metastatic melanoma with brain cancer and intracranial bleed. Had previously had nursing care around 7-7 during the day, but has a difficulty with staffing and intermittent to no care in the last week. Altered mental status, suspected seizure episode: 2 episodes of staring and vocal tic lasting 20 seconds per family member In the setting of patient missing antiseizure medications without routine care due to her primary caregiver being hospitalized [facility] on-call with seizure precautions Patient is appropriate at bedside exam, baseline does not communicate meaningfully due to medical Hx Continue lamotrigine XR 300 mg daily CThead without acute findings, no evidence of bleed. 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 daily No hypoxia, no tachycardia on admission No evidence of bleeding History of recurrent complicated UTIs: Has been treated with Macrobid recently, UA with leukocyte esterase but otherwise uninfected appearing. UCx negative. No leukocytosis Type 2 diabetes mellitus: Diet controlled at home Admitting glucose 170 Continue SSI, glucose checks Placement: Due to her primary caregiver passing away today, patient does not have raghav quate care at home, and prior to admission had missed multiple doses of her antiseizure medications. She is not able to perform her IADLs/ADLs. Case management consulted. Awaiting placement DVT prophylaxis: Anticoagulated on Eliquis Diet: Diabetic diet CODE STATUS: DNR/DNI, discussed with family Disposition: Medical/surg (2) Anaplastic oligoastrocytoma: (3) History of TIA (transient ischemic attack): (4) Diabetic peripheral neuropathy: (5) Diabetes mellitus: (6) Epilepsy: Admission and Anticipated Discharge Date Admission Date: May 19, 2022 Subjective No acute events overnight. No meaningful conversation due to cognitive impairment. Review of Systems Review of Systems: Unobtainable due to cognitive status Physical Exam Constitutional: WD/WN, vitals as above Eyes: + anicteric sclerae ENMT: external ear and nose normal, oropharynx normal Neck: trachea midline, no thyromegaly Respiratory: normal respiratory effort, lungs clear to auscultation Cardiovascular: RRR, no murmur, no edema Gastrointestinal (Abdomen): normal bowel sounds, soft, nontender, no hepatosplenomegaly Musculoskeletal: Head/Neck/Chest: + head abnormal to inspection (left previous craniotomy noted) Skin: no rashes, warm and dry Neurologic: moves all extremities Results & Data Results & Data ([facility]) Vital Signs (Past 12 Hours) Vital Signs Temp Pulse Resp BP Pulse Ox O2 Del Method 05/23/22 09:54 Room Air 05/23/22 07:10 36.6 C 75 16 119/79 95 Room Air 05/22/22 23:09 36.5 C 77 16 121/80 95 Room Air PG Care Time/CCT Total # of Minutes Spent Total Time Spent with Patient: Total time spent is greater than 50% in coordination of care (as documented) at patient's floor/unit and/or counseling patient: Coding Level of Care Code 23696 Subseq Hosp Care Lvl 1 Diagnoses Confusion R41.0 Anaplastic oligoastrocytoma C71.9 History of TIA (transient ischemic attack) Z86.73 Diabetic peripheral neuropathy E11.42 Diabetes mellitus E11.9 Epilepsy G40.909
[2022-05-23] MEDS: OLANZapine 10 MG/2.1 ML SDV IM SCH (21:30)
[2022-05-24] MEDS: APIXABAN 2.5 MG TAB PO SCH ×3 (08:43→21:05)
[2022-05-24] MEDS: ASPIRIN 81 MG ECTAB PO SCH (08:43)
[2022-05-24] MEDS: lamoTRIgine 100 MG TAB PO SCH ×4 (08:43→21:05)
--- NOTE | 2022-05-24 10:25 | Hospitalist Progress Note ---
Date of Service May 24, 2022 Assessment & Plan (1) Confusion: Plan: Lisa 71-year-old female who presents with an episode of confusion following an episode of rigidity and 20 seconds of vocal tic concerning for seizure. Her who is her primary caregiver was recently admitted with metastatic melanoma with brain cancer and intracranial bleed. Had previously had nursing care around 7-7 during the day, but has a difficulty with staffing and intermittent to no care in the last week. Altered mental status, suspected seizure episode: 2 episodes of staring and vocal tic lasting 20 seconds per family member on day of admission In the setting of patient missing antiseizure medications without routine care due to her primary caregiver being hospitalized (missed at least two doses per daughter) Ativan on-call with seizure precautions Continue lamotrigine XR 300 mg daily, no seizure activity since this provider assumed care CThead without acute findings, no evidence of bleed. 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 daily No hypoxia, no tachycardia on admission No evidence of bleeding History of recurrent complicated UTIs: Has been treated with Macrobid recently, UA with leukocyte esterase but otherwise uninfected appearing. UCx negative. No leukocytosis Type 2 diabetes mellitus: Diet controlled at home Admitting glucose 170 Continue SSI, glucose checks Placement: Due to her primary caregiver passing away today, patient does not have adequa te care at home, and prior to admission had missed multiple doses of her antiseizure medications. She is not able to perform her IADLs/ADLs. Case management consulted. Awaiting placement to facility for continued care. Discussed care needs and concerns with daughter, who also has children and while works hard to ensure her mother's care and safety is overwhelmed by her numerous care needs. DVT prophylaxis: Anticoagulated on Eliquis Diet: Diabetic diet CODE STATUS: DNR/DNI, discussed with family by previous provider Disposition: Medical/surg (2) Anaplastic oligoastrocytoma: (3) History of TIA (transient ischemic attack): (4) Diabetic peripheral neuropathy: (5) Diabetes mellitus: (6) Epilepsy: Admission and Anticipated Discharge Date Admission Date: May 19, 2022 Subjective No acute events overnight. No meaningful conversation due to cognitive impairmen t, did say not having pain. yesterday. Spoke with daughter about concerns regarding Lisa making it to his . Review of Systems Review of Systems: Unobtainable due to cognitive status Physical Exam Constitutional: WD/WN, vitals as above Respiratory: normal respiratory effort, lungs clear to auscultation Cardiovascular: RRR, no murmur, no edema Gastrointestinal (Abdomen): normal bowel sounds, soft, nontender, no hepatosplenomegaly Musculoskeletal: Head/Neck/Chest: + head abnormal to inspection (left previous craniotomy noted) Skin: no rashes, warm and dry Neurologic: moves all extremities Results & Data Results & Data ([facility]) Vital Signs (Past 12 Hours) Vital Signs Temp Pulse Resp BP Pulse Ox O2 Del Method 05/24/22 08:04 Room Air 05/24/22 05:43 36.5 C 66 16 152/96 H 98 Room Air PG Care Time/CCT Total # of Minutes Spent Total Time Spent with Patient: Total time spent with this patient's care, on this day of evaluation, including chart review, documentation, orders (including IV pain medications today) and communicating plan with care team/patient/family: 30 minutes Coding Level of Care Code 37123 Subseq Hosp Care Lvl 1 Diagnoses Confusion R41.0 Anaplastic oligoastrocytoma C71.9 History of TIA (transient ischemic attack) Z86.73 Diabetic peripheral neuropathy E11.42 Diabetes mellitus E11.9 Epilepsy G40.909
[2022-05-24] MEDS: OLANZapine 10 MG/2.1 ML SDV IM SCH (20:54)
--- NOTE | 2022-05-25 07:55 | Hospitalist Progress Note ---
Date of Service May 25, 2022 Assessment & Plan (1) Confusion: Plan: Lisa is a 71-year-old female admitted for suspected seizure. Her who is her primary caregiver was recently admitted with metastatic melanoma with brain cancer and intracranial bleed; over the weekend. Had previously had nursing care around 7-7 during the day, but has a difficulty with staffing and intermittent to no care in the week leading up to hospitalization Altered mental status, suspected seizure episode: 2 episodes of staring and vocal tic lasting 20 seconds per family member on day of admission In the setting of patient missing antiseizure medications without routine care due to her primary caregiver being hospitalized (missed at least two days per daughter) Ativan on-call with seizure precautions; so seizure activity since admission Continue lamotrigine XR 300 mg daily CThead without acute findings, no evidence of bleed. 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 daily No hypoxia, no tachycardia on admission No evidence of bleeding History of recurrent complicated UTIs: Has been treated with Macrobid recently, UA with leukocyte esterase but otherwise uninfected appearing. UCx negative. No leukocytosis Type 2 diabetes mellitus: Diet controlled at home Admitting glucose 170 Continue glucose checks; not on insulin at this time and last POC BSG was 121 Placement: Due to her primary caregiver passing away over the weekend, patient does not have adequate care at home, and prior to admission had missed multiple doses of her antiseizure medications. She is not able to perform her IADLs/ADLs without caregiver support. Case management consulted. Awaiting placement to facility for continued care. Discussed care needs and concerns with daughter 1/1, who also has children and while works hard to ensure her mother's care and safety is overwhelmed by her numerous care needs. DVT prophylaxis: Anticoagulated on Eliquis Diet: Diabetic diet CODE STATUS: DNR/DNI, discussed with family by previous provider Disposition: Medical/surg (2) Anaplastic oligoastrocytoma: (3) History of TIA (transient ischemic attack): (4) Diabetic peripheral neuropathy: (5) Diabetes mellitus: (6) Epilepsy: Admission and Anticipated Discharge Date Admission Date: May 19, 2022 Subjective No acute events overnight, no complaints from patient or nursing staff. Review of Systems Review of Systems: Unobtainable due to cognitive status Physical Exam Constitutional: WD/WN, vitals as above Respiratory: normal respiratory effort, lungs clear to auscultation Cardiovascular: RRR, no murmur, no edema Gastrointestinal (Abdomen): normal bowel sounds, soft, nontender, no hepatosplenomegaly Musculoskeletal: Head/Neck/Chest: + head abnormal to inspection (left previous craniotomy noted) Skin: no rashes, warm and dry Neurologic: moves all extremities Psychiatric: Orientation: alert Results & Data Results & Data ([facility]) Vital Signs (Past 12 Hours) Vital Signs Temp Pulse Resp BP Pulse Ox O2 Del Method 05/24/22 20:50 Room Air 05/24/22 21:03 36.5 C 73 16 131/81 97 Room Air PG Care Time/CCT Total # of Minutes Spent Total Time Spent with Patient: Total time spent is greater than 50% in coordination of care (as documented) at patient's floor/unit and/or counseling patient: Coding Level of Care Code 45548 Subseq Hosp Care Lvl 1 Diagnoses Confusion R41.0 Anaplastic oligoastrocytoma C71.9 History of TIA (transient ischemic attack) Z86.73 Diabetic peripheral neuropathy E11.42 Diabetes mellitus E11.9 Epilepsy G40.909
[2022-05-25] MEDS: ASPIRIN 81 MG ECTAB PO SCH (08:45)
[2022-05-25] MEDS: lamoTRIgine 100 MG TAB PO SCH ×3 (08:45→21:02)
[2022-05-25] MEDS: APIXABAN 2.5 MG TAB PO SCH ×2 (08:45→21:02)
[2022-05-25] MEDS: OLANZapine 10 MG/2.1 ML SDV IM SCH (21:07)
[2022-05-26] MEDS: ASPIRIN 81 MG ECTAB PO SCH (08:29)
[2022-05-26] MEDS: lamoTRIgine 100 MG TAB PO SCH ×3 (08:29→21:30)
[2022-05-26] MEDS: APIXABAN 2.5 MG TAB PO SCH ×2 (08:29→21:30)
--- NOTE | 2022-05-26 13:51 | Hospitalist Progress Note ---
Date of Service May 26, 2022 Assessment & Plan (1) Confusion: Plan: Lisa is a 71-year-old female admitted for suspected seizure. Her who is her primary caregiver was recently admitted with metastatic melanoma with brain cancer and intracranial bleed; over the weekend. Had previously had nursing care around 7-7 during the day, but has a difficulty with staffing and intermittent to no care in the week leading up to hospitalization Altered mental status, suspected seizure episode: 2 episodes of staring and vocal tic lasting 20 seconds per family member on day of admission In the setting of patient missing antiseizure medications without routine care due to her primary caregiver being hospitalized (missed at least two days per da ughter) Ativan on-call with seizure precautions; so seizure activity since admission Continue lamotrigine XR 300 mg daily CThead without acute findings, no evidence of bleed. Defer MRI at this time - Awaiting placement, appreciate Case Management involvement; awaiting final determination from several facilities. Continue antiseizure medications as above. Patient's cognition is at her baseline, which is alert, minimally conversive to staff, but perks up with family members 2.5 mg p.o. daily No hypoxia, no tachycardia on admission No evidence of bleeding History of recurrent complicated UTIs: Has been treated with Macrobid recently, UA with leukocyte esterase but otherwise uninfected appearing. UCx negative. No leukocytosis Type 2 diabetes mellitus: Diet controlled at home Admitting glucose 170 Continue glucose checks; not on insulin at this time and last POC BSG was 121 Placement: Due to her primary caregiver passing away over the weekend, patient does not have adequate care at home, and prior to admission had missed multiple doses of her antiseizure medications. She is not able to perform her IADLs/ADLs without caregiver support. Case management consulted. Awaiting placement to facility for continued care. Discussed care needs and concerns with daughter 1/1, who also has children and while works hard to ensure her mother's care and safety is overwhelmed by her numerous care needs. DVT prophylaxis: Anticoagulated on Eliquis Diet: Diabetic diet CODE STATUS: DNR/DNI, discussed with family by previous provider Disposition: Medical/surg (2) Anaplastic oligoastrocytoma: Plan: Previously resected in 1999. She has a left frontal parietal depressed skull defect from osteomyelitis that developed postoperatively requiring resection of the affected cranium in that area. (3) History of TIA (transient ischemic attack): Plan: Supportive care. Continue current medical management (4) Diabetic peripheral neuropathy: Plan: No current complaints (5) Diabetes mellitus: Plan: Diet controlled. Sliding scale coverage as needed (6) Epilepsy: Plan: Continue current antiseizure medications (7) History of pulmonary embolism: Plan: Currently on Eliquis therapy Plan We will discharge to SNF when arrangements are finalized Admission and Anticipated Discharge Date Admission Date: May 19, 2022 Subjective The patient is somnolent at the time of my examination. No new problems. SNF placement is pending. Review of Systems Review of Systems: Cannot assess review of systems at this time Physical Exam Physical Exam: General-somnolent at the time of my examination. HEENT-chronically depressed skull defect in the left frontoparietal area from previous surgery. Neck-no lymphadenopathy or thyromegaly, trachea midline Chest-clear anteriorly. No rales wheezing or rhonchi Cardiac-regular rate and rhythm, normal S1 and S2 Abdomen-normal bowel sounds, no distention Extremities-no significant peripheral lower extremity edema Neuro-cannot assess currently Psych-cannot assess currently Results & Data Results & Data ([facility]) Vital Signs (Past 12 Hours) Vital Signs Temp Pulse Resp BP Pulse Ox O2 Del Method 05/26/22 08:17 Room Air 05/26/22 07:59 36.5 C 73 20 121/76 97 Room Air Laboratory Results 05/20/22 06:59 05/20/22 06:59 PG Care Time/CCT Total # of Minutes Spent Total Time Spent with Patient: Total time spent is greater than 50% in coordination of care (as documented) at patient's floor/unit and/or counseling patient: Coding Level of Care Code 10183 Subseq Hosp Care Lvl 3 Diagnoses Confusion R41.0 Anaplastic oligoastrocytoma C71.9 History of TIA (transient ischemic attack) Z86.73 Diabetic peripheral neuropathy E11.42 Diabetes mellitus E11.9 Epilepsy G40.909 History of pulmonary embolism Z86.711
[2022-05-26] MEDS: OLANZapine 10 MG/2.1 ML SDV IM SCH (21:33)
--- NOTE | 2022-05-27 07:32 | Hospitalist Progress Note ---
Date of Service May 27, 2022 Assessment & Plan (1) Confusion: Plan: Lisa is a 71-year-old female admitted for suspected seizure. Her who is her primary caregiver was recently admitted with metastatic melanoma with brain cancer and intracranial bleed; over the weekend. Had previously had nursing care around 7-7 during the day, but has a difficulty with staffing and intermittent to no care in the week leading up to hospitalization Altered mental status, suspected seizure episode: 2 episodes of staring and vocal tic lasting 20 seconds per family member on day of admission In the setting of patient missing antiseizure medications without routine care due to her primary caregiver being hospitalized (missed at least two days per daughter) Ativan on-call with seizure precautions; so seizure activity since admission Continue lamotrigine XR 300 mg daily CThead without acute findings, no evidence of bleed. Defer MRI at this time - Awaiting placement, appreciate Case Management involvement; awaiting final determination from several facilities. Continue antiseizure medications as above. Patient's cognition is at her baseline, which is alert, minimally conversive to staff, but perks up with family members 2.5 mg p.o. daily No hypoxia, no tachycardia on admission No evidence of bleeding History of recurrent complicated UTIs: Has been treated with Macrobid recently, UA with leukocyte esterase but otherwise uninfected appearing. UCx negative. No leukocytosis Type 2 diabetes mellitus: Diet controlled at home Admitting glucose 170 Continue glucose checks; not on insulin at this time and last POC BSG was 121 Placement: Due to her primary caregiver passing away over the weekend, patient does not have adequate care at home, and prior to admission had missed multiple doses of her antiseizure medications. She is not able to perform her IADLs/ADLs without caregiver support. Case management consulted. Awaiting placement to facility for continued care. Discussed care needs and concerns with daughter 1/1, who also has children and while works hard to ensure her mother's care and safety is overwhelmed by her numerous care needs. DVT prophylaxis: Anticoagulated on Eliquis Diet: Diabetic diet CODE STATUS: DNR/DNI, discussed with family by previous provider Disposition: Medical/surg (2) Anaplastic oligoastrocytoma: Plan: Previously resected in 1999. She has a left frontal parietal depressed skull defect from osteomyelitis that developed postoperatively requiring resection of the affected cranium in that area. (3) History of TIA (transient ischemic attack): Plan: Supportive care. Continue current medical management (4) Diabetic peripheral neuropathy: Plan: No current complaints (5) Diabetes mellitus: Plan: Diet controlled. Sliding scale coverage as needed (6) Epilepsy: Plan: Continue current antiseizure medications (7) History of pulmonary embolism: Plan: Currently on Eliquis therapy Plan We will discharge to SNF when arrangements are finalized Admission and Anticipated Discharge Date Admission Date: May 19, 2022 Subjective No overnight events. Nursing report that last BM was 05/23. Physical Exam Constitutional: WD/WN, vitals as above Respiratory: normal respiratory effort, lungs clear to auscultation Cardiovascular: RRR, no murmur, no edema Gastrointestinal (Abdomen): normal bowel sounds, soft, nontender, no hepatosplenomegaly Skin: no rashes, warm and dry Neurologic: moves all extremities Psychiatric: Orientation: alert Results & Data Results & Data ([facility]) Vital Signs (Past 12 Hours) Vital Signs Temp Pulse Resp BP Pulse Ox O2 Del Method 05/26/22 21:45 36.6 C 89 18 117/76 94 Room Air PG Care Time/CCT Total # of Minutes Spent Total Time Spent with Patient: Total time spent is greater than 50% in coordination of care (as documented) at patient's floor/unit and/or counseling patient: Coding Diagnoses Confusion R41.0 Anaplastic oligoastrocytoma C71.9 History of TIA (transient ischemic attack) Z86.73 Diabetic peripheral neuropathy E11.42 Diabetes mellitus E11.9 Epilepsy G40.909 History of pulmonary embolism Z86.711
[2022-05-27] MEDS: APIXABAN 2.5 MG TAB PO SCH (08:34)
[2022-05-27] MEDS: lamoTRIgine 100 MG TAB PO SCH ×2 (08:34→13:18)
[2022-05-27] MEDS: ASPIRIN 81 MG ECTAB PO SCH (08:34)
[2022-05-27] MEDS ORDERED: POLYETHYLENE (MIRALAX) 17 GM PACK PO SCH (09:00)
--- NOTE | 2022-05-27 10:29 | Discharge Summary ---
Discharge Summary Date of Service May 27, 2022 Admission HPI Per Admitting Provider Lisa is a 71-year-old female with a past medical history of epilepsy, diabetes mellitus, depression, brain abscess, craniotomy, anaplastic oligo astrocytoma, pulmonary embolism, complicated UTI with multidrug resistance who presented to the ER for assessment of seizure-like episodes. History limited due to aphasia. Family visiting locally from 2-3 hours away to help care. Has 7-7 care, but missing doses and nursing help limited. Primary caregiver currently admitted for stage 4 melanoma. Per EMS report patient had 2 observed 20 sec episodes of clenched teeth and nonsensical verbal outburst. Episodes were witnessed by family. Recently treated for complicated UTI ciprofloxacin 04/22/2022. 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 Missed at least two doses On ER review: No leukocytosis. Hemoglobin 13.2. Sodium normal. Potassium normal. Creatinine with normal baseline, admitting creatinine 1.17. No lactate available. UA is not infected appearing. CT of the head shows no acute findings, chronic and postsurgical findings consistent with prior resection and craniectomy. ___ Per Bedside primary caregiver last 2 years. Nursing 100hrs week, watches overnight. Staffing lately much worse, coverage only about half the week. had mets cancer with brain bleed and no care at night. Has missed at least two doses of antiseizure medications. Switched agencies, last week nurse thought Pat may have had a seizure like episode. normally seizures in the past have been with seizures. Episode this time was with stiffness and repetitive vocal tick lasting 20 seconds with some fatigue afterwards. Was staring into space, but no compelte LoC, fall, or shaking. Was recently discharged from [facility] with a complicated UTI in march. has constant recurrent UTIs. Since returning home had an outpatient UA and had trace bacteria but was not treated and thought was resolving. Foul smelling urine since ~05/12. Increased agitation last 2 days with sedation inbetween. Took macrobid for last 2-3 days but may have missed doses, daughter is not sure. No care right now with her . No fevers, chills, cough. Does generally not get fevers even with bad UTIs. No LoC. Had not indicated chest pain, chest pressure. Mostly yes/no answers, some sporadic words/short sentences. +suspicion for sundowning but had not had follow up for this with psych. endorses hx of dementia, multifactorial with hx of brain ca resection. No tobacco or alcohol use. 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 Principal Dx & Hospital Course #1 = Principal Diagnosis (1) Confusion: Lisa is a 71-year-old female admitted for suspected seizure. Her who is her primary caregiver was recently admitted with metastatic melanoma with brain cancer and intracranial bleed; over the weekend. Had previously had nursing care around 7-7 during the day, but has a difficulty with staffing and intermittent to no care in the week leading up to hospitalization Altered mental status, suspected seizure episode: 2 episodes of staring and vocal tic lasting 20 seconds per family member on day of admission In the setting of patient missing antiseizure medications without routine care due to her primary caregiver being hospitalized (missed at least two days per daughter) Ativan on-call with seizure precautions; so seizure activity since admission Continue lamotrigine XR 300 mg daily CThead without acute findings, no evidence of bleed. Defer MRI at this time - Awaiting placement, appreciate Case Management involvement; awaiting final determination from several facilities. Continue antiseizure medications as above. Patient's cognition is at her baseline, which is alert, minimally conversive to staff, but perks up with family members 2.5 mg p.o. daily No hypoxia, no tachycardia on admission No evidence of bleeding History of recurrent complicated UTIs: Has been treated with Macrobid recently, UA with leukocyte esterase but otherwise uninfected appearing. UCx negative. No leukocytosis Type 2 diabetes mellitus: Diet controlled at home Admitting glucose 170 Continue glucose checks; not on insulin at this time and last POC BSG was 121 Placement: Due to her primary caregiver passing away over the weekend, patient does not have adequate care at home, and prior to admission had missed multiple doses of her antiseizure medications. She is not able to perform her IADLs/ADLs without caregiver support. Case management consulted. Awaiting placement to facility for continued care. Discussed care needs and concerns with daughter 1/1, who also has children and while works hard to ensure her mother's care and safety is overwhelmed by her numerous care needs. DVT prophylaxis: Anticoagulated on Eliquis Diet: Diabetic diet CODE STATUS: DNR/DNI, discussed with family by previous provider Disposition: Medical/surg (2) Anaplastic oligoastrocytoma: Previously resected in 1999. She has a left frontal parietal depressed skull defect from osteomyelitis that developed postoperatively requiring resection of the affected cranium in that area. (3) History of TIA (transient ischemic attack): Supportive care. Continue current medical management (4) Diabetic peripheral neuropathy: No current complaints (5) Diabetes mellitus: Diet controlled. Sliding scale coverage as needed (6) Epilepsy: Continue current antiseizure medications (7) History of pulmonary embolism: Currently on Eliquis therapy Plan We will discharge to SNF when arrangements are finalized Updated Medication List Medication Instructions Recorded Confirmed Type aspirin 81 mg tablet,delayed 81 mg PO QAM #30 tabs 11/10/18 05/19/22 History release blood sugar diagnostic (Accu-Chek #50 ea 06/30/19 03/27/22 Rx Judy Plus test strips) lancets (Accu-Chek Fastclix Lancet #50 ea 06/30/19 03/27/22 Rx Drum) polyethylene glycol 3350 8.5 gram 8.5 g PO DAILY PRN Constipation 01/08/20 05/19/22 History oral powder packet acetaminophen 325 mg tablet 325 mg PO Q4H PRN Pain 10/28/20 05/19/22 History docusate sodium 100 mg capsule 100 mg PO QAM PRN Constipation 10/28/20 05/19/22 History (Colace) cholecalciferol (vitamin D3) 250 250 mcg PO QAM 06/30/21 05/19/22 History mcg (10,000 unit) capsule mecobalamin (vitamin B12) 1,000 1,000 mcg PO QAM 06/30/21 05/19/22 History mcg chewable tablet lamotrigine 300 mg tablet,extended 300 mg PO QAM 10/01/21 05/19/22 History release 24 hr (Lamictal XR) apixaban 2.5 mg tablet (Eliquis) 2.5 mg PO BID #60 tabs 03/29/22 05/19/22 Rx Lift Chair #1 ea 04/13/22 Rx Wheelchair (Manual) (Manual #1 ea 04/13/22 Rx Wheelchair) sennosides 8.6 mg-docusate sodium 1 tab-cap PO DAILY 04/13/22 05/19/22 History 50 mg tablet (Senokot-S) triple strength cranberry plus Vit See Rx Instructions .Route 04/15/22 05/19/22 Rx C .COMPLEX #30 Tabs nitrofurantoin 100 mg PO BID 7 days #14 caps 05/14/22 05/19/22 Rx monohydrate/macrocrystals 100 mg capsule ondansetron 4 mg disintegrating 4 mg PO DIRECTED PRN 05/19/22 05/19/22 History tablet NAUSEA/VOMITING Hospital Stay Data Consultations 05/19/22 13:03 ED Decision to Admit Stat Diagnostic Imagining Performed 05/19/22 11:49 CT head/brain wo con Stat Coding Diagnoses Confusion R41.0 Anaplastic oligoastrocytoma C71.9 History of TIA (transient ischemic attack) Z86.73 Diabetic peripheral neuropathy E11.42 Diabetes mellitus E11.9 Epilepsy G40.909 History of pulmonary embolism Z86.711
--- NOTE | 2022-05-27 23:00 | Discharge Summary ---
Discharge Summary Date of Service May 27, 2022 Admission HPI Per Admitting Provider Lisa is a 71-year-old female with a past medical history of epilepsy, diabetes mellitus, depression, brain abscess, craniotomy, anaplastic oligo astrocytoma, pulmonary embolism, complicated UTI with multidrug resistance who presented to the ER for assessment of seizure-like episodes. History limited due to aphasia. Family visiting locally from 2-3 hours away to help care. Has 7-7 care, but missing doses and nursing help limited. Primary caregiver currently admitted for stage 4 melanoma. Per EMS report patient had 2 observed 20 sec episodes of clenched teeth and nonsensical verbal outburst. Episodes were witnessed by family. Recently treated for complicated UTI ciprofloxacin 04/22/2022. 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 Missed at least two doses On ER review: No leukocytosis. Hemoglobin 13.2. Sodium normal. Potassium normal. Creatinine with normal baseline, admitting creatinine 1.17. No lactate available. UA is not infected appearing. CT of the head shows no acute findings, chronic and postsurgical findings consistent with prior resection and craniectomy. ___ Per Bedside primary caregiver last 2 years. Nursing 100hrs week, watches overnight. Staffing lately much worse, coverage only about half the week. had mets cancer with brain bleed and no care at night. Has missed at least two doses of antiseizure medications. Switched agencies, last week nurse thought Pat may have had a seizure like episode. normally seizures in the past have been with seizures. Episode this time was with stiffness and repetitive vocal tick lasting 20 seconds with some fatigue afterwards. Was staring into space, but no compelte LoC, fall, or shaking. Was recently discharged from [facility] with a complicated UTI in march. has constant recurrent UTIs. Since returning home had an outpatient UA and had trace bacteria but was not treated and thought was resolving. Foul smelling urine since ~05/12. Increased agitation last 2 days with sedation inbetween. Took macrobid for last 2-3 days but may have missed doses, daughter is not sure. No care right now with her . No fevers, chills, cough. Does generally not get fevers even with bad UTIs. No LoC. Had not indicated chest pain, chest pressure. Mostly yes/no answers, some sporadic words/short sentences. +suspicion for sundowning but had not had follow up for this with psych. endorses hx of dementia, multifactorial with hx of brain ca resection. No tobacco or alcohol use. 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 Admission Exam Per Admitting Provider General: Orientation limited by cognitive status. No acute distress. Left- sided partial craniectomy. HEENT: Pupils equal and reactive to light. Vision grossly intact, hearing grossly intact Pulm: CTAB A&P. -wheezes, -rales, -rhonchi. Symmetrical chest rise. No increased work of breathing. No respiratory distress. Cardiac: RRR, -mrg. Radial pulses intact and symmetrical. Abdominal: Nontender, nondistended, soft. BS present. Extremities: Right chicken buyer strength 4+/5, left chicken buyer strength 5/5, wiggle toes bilaterally. Nods head that she can feel sensation to soft touch in hands and feet. Neurologic exam is limited by cognitive status. No tongue lesions. Principal Dx & Hospital Course #1 = Principal Diagnosis (1) Confusion: (2) Anaplastic oligoastrocytoma: (3) History of TIA (transient ischemic attack): (4) Diabetic peripheral neuropathy: (5) Diabetes mellitus: (6) Epilepsy: (7) History of pulmonary embolism: Pato Gonzalez is a 71-year-old female admitted for suspected seizure. Her who is her primary caregiver was recently admitted with metastatic melanoma with brain cancer and intracranial bleed; over the weekend. Had previously had nursing care around 7-7 during the day, but has a difficulty with staffing and intermittent to no care in the week leading up to hospitalization Altered mental status, suspected seizure episode: 2 episodes of staring and vocal tic lasting 20 seconds per family member on day of admission In the setting of patient missing antiseizure medications without routine care due to her primary caregiver being hospitalized (missed at least two days per daughter) Ativan on-call with seizure precautions; no seizure activity since admission Continue lamotrigine XR 300 mg daily CThead without acute findings, no evidence of bleed. Defer MRI History of recurrent complicated UTIs: Has been treated with Macrobid recently, UA with leukocyte esterase but otherwise uninfected appearing. UCx negative. No leukocytosis Type 2 diabetes mellitus: Diet controlled at home Placement: Due to her primary caregiver passing away over the weekend, patient does not have adequate care at home, and prior to admission had missed multiple doses of her antiseizure medications. She is not able to perform her IADLs/ADLs without caregiver support. To SNF today. Anaplastic oligoastrocytoma: - Previously resected in 1999. She has a left frontal parietal depressed skull defect from osteomyelitis that developed postoperatively requiring resection of the affected cranium in that area. History of TIA (transient ischemic attack): - Supportive care. Continue current medical management Diabetic peripheral neuropathy: - No current complaints Diabetes mellitus: - Diet controlled. Sliding scale coverage as needed at outside facility Epilepsy: - Continue current antiseizure medications History of pulmonary embolism: - Continue Eliquis therapy Discharge Exam Constitutional WD/WN, vitals as above Respiratory normal respiratory effort, lungs clear to auscultation Cardiovascular RRR, no murmur, no edema Neurologic head with previous left craniotomy noted able to shake head yes and no and answer one word questions Updated Medication List Medication Instructions Recorded Confirmed Type aspirin 81 mg tablet,delayed 81 mg PO QAM #30 tabs 11/10/18 05/19/22 History release blood sugar diagnostic (Accu-Chek #50 ea 06/30/19 03/27/22 Rx Judy Plus test strips) lancets (Accu-Chek Fastclix Lancet #50 ea 06/30/19 03/27/22 Rx Drum) acetaminophen 325 mg tablet 325 mg PO Q4H PRN Pain 10/28/20 05/19/22 History docusate sodium 100 mg capsule 100 mg PO QAM PRN Constipation 10/28/20 05/19/22 History (Colace) cholecalciferol (vitamin D3) 250 250 mcg PO QAM 06/30/21 05/19/22 History mcg (10,000 unit) capsule mecobalamin (vitamin B12) 1,000 1,000 mcg PO QAM 06/30/21 05/19/22 History mcg chewable tablet lamotrigine 300 mg tablet,extended 300 mg PO QAM 10/01/21 05/19/22 History release 24 hr (Lamictal XR) apixaban 2.5 mg tablet (Eliquis) 2.5 mg PO BID #60 tabs 03/29/22 05/19/22 Rx Lift Chair #1 ea 04/13/22 Rx Wheelchair (Manual) (Manual #1 ea 04/13/22 Rx Wheelchair) sennosides 8.6 mg-docusate sodium 1 tab-cap PO DAILY 04/13/22 05/19/22 History 50 mg tablet (Senokot-S) triple strength cranberry plus Vit See Rx Instructions .Route 04/15/22 05/19/22 Rx C .COMPLEX #30 Tabs ondansetron 4 mg disintegrating 4 mg PO DIRECTED PRN 05/19/22 05/19/22 History tablet NAUSEA/VOMITING melatonin 3 mg tablet 6 mg PO HS PRN sleep 30 days #60 05/27/22 Rx tabs olanzapine 2.5 mg tablet 2.5 mg PO HS PRN agitation 30 days 05/27/22 Rx #30 tabs polyethylene glycol 3350 17 gram 17 g PO BID PRN constipation 14 05/27/22 Rx oral powder packet (Miralax) days #30 ea Hospital Stay Data Consultations 05/19/22 13:03 ED Decision to Admit Stat Diagnostic Imagining Performed 05/19/22 11:49 CT head/brain wo con Stat Pending Results Patient Have Any Pending Studies at Discharge: No Discharge Instructions Given to Patient (Per Discharging Provider) Lisa is a 71-year-old female admitted for suspected seizure. Her who is her primary caregiver was recently admitted with metastatic melanoma with brain cancer and intracranial bleed; over the weekend. Had previously had nursing care around 7-7 during the day, but has a difficulty with staffing and intermittent to no care in the week leading up to hospitalization Altered mental status, suspected seizure episode: 2 episodes of staring and vocal tic lasting 20 seconds per family member on day of admission In the setting of patient missing antiseizure medications without routine care due to her primary caregiver being hospitalized (missed at least two days per daughter) Ativan on-call with seizure precautions; no seizure activity since admission Continue lamotrigine XR 300 mg daily CThead without acute findings, no evidence of bleed. Defer MRI at this time History of recurrent complicated UTIs: Has been treated with Macrobid recently, UA with leukocyte esterase but otherwise uninfected appearing. UCx negative. No leukocytosis Type 2 diabetes mellitus: Diet controlled at home Placement: Due to her primary caregiver passing away over the weekend, patient does not have adequate care at home, and prior to admission had missed multiple doses of her antiseizure medications. She is not able to perform her IADLs/ADLs without caregiver support. Anaplastic oligoastrocytoma: Previously resected in 1999. She has a left frontal parietal depressed skull defect from osteomyelitis that developed postoperatively requiring resection of the affected cranium in that area. History of TIA (transient ischemic attack): Supportive care. Continue current medical management Diabetic peripheral neuropathy: No current complaints Diabetes mellitus: Diet controlled. Sliding scale coverage as needed Epilepsy: Continue current antiseizure medications History of pulmonary embolism: Currently on Eliquis therapy Total Time Total Time Spent Total Time Spent (In Minutes): 30 minute Coding Level of Care Code HOSP INP/OBS DISCH >30 MIN Diagnoses Confusion R41.0 Anaplastic oligoastrocytoma C71.9 History of TIA (transient ischemic attack) Z86.73 Diabetic peripheral neuropathy E11.42 Diabetes mellitus E11.9 Epilepsy G40.909 History of pulmonary embolism Z86.711
== END 2022-05-27 16:27 | DRG 101 ==
LOC: ED 11:35 → EDINP 14:25 → SUATTDRO 14:25 → 2W 05-20 20:33 → 3E 05-22 18:16